=== PATIENT | female | born 1980 | race Caucasian/White ===

== ENCOUNTER 2019-05-15 17:02 | Inpatient (IN) ==
[2019-05-15] MEDS ORDERED: ONDANSETRON 4 MG/2 ML VIAL ONE (17:50)
[2019-05-15] MEDS ORDERED: HYDROmorphone 2 MG/1 ML VIAL IV STA ×2 (17:55→18:26)
[2019-05-15] MEDS ORDERED: ONDANSETRON 4 MG/2 ML VIAL IV STA ×2 (17:55→19:00)
[2019-05-15] MEDS ORDERED: SODIUM CHLORIDE 0.9% 1,000 ML IV STA (17:55)
[2019-05-15 18:10] LABS: Basophils # 0.1 10*3/uL (0.0-0.2); Basophils % 0.7 % (0.0-0.8); Eosinophils # 0.1 10*3/uL (0.0-0.87); Eosinophils % 1.1 % (0.00-10.9); Hematocrit 45.6 VOL% (35.7-47.0); Immature Granulocytes % 0.3 %; Immature Granulocytes Absolute 0.04 #; Mean Corpuscular HGB Conc 32.9 GM/DL (32-36); Mean Corpuscular Volume 88.2 FL (87-102); Mean Platelet Volume 10.4 FL (9.6-12.0); Monocytes % 7.2 % (1.7-12.7); Neutrophils % 67.7 % (38.7-73.9); Platelet Count 334 T/CUMM (130-400); Red Blood Count 5.17 MC/CUMM (3.8-5.5); White Blood Count 13.2 T/CUMM (4-12)
[2019-05-15 18:28] LABS: Albumin 4.1 G/DL (3.4-5.0); Bilirubin,Total 0.8 MG/DL (0.2-1.0); Calcium 9.5 MG/DL (8.5-10.1); Osmolality,Calculated 274.5 MOS/KG (273-304); Total Protein 7.8 G/DL (6.4-8.3)
[2019-05-15 18:48] LABS: Amorphous Crystals,Urine Occasional /HPF (Few); Apearance,Urine Slightly Hazy (Clear); Bilirubin,Urine Negative (Negative); Blood, Urine Negative (Negative); Glucose,Urine (UA) Negative (Negative); Ketones,Urine Negative (Negative); Mucus,Urine Occasional /LPF (Occasional); Nitrite,Urine Negative (Negative); Protein,Urine Negative; Squamous Epithelial Cell,Urine Occasional /HPF (0-10); Urine Color Yellow (Yellow); Urine Specific Gravity 1.011 (1.001-1.035); Urine Urobilinogen < 2.0 EU/DL (0.2-1.0)
[2019-05-15] MEDS ORDERED: NICOTINE 21 MG/24 HR PATCH TRANSDERM PRN (19:50)
[2019-05-15] MEDS ORDERED: diphenhydrAMINE CAP 25 MG CAPSULE PO PRN (19:50)
[2019-05-15] MEDS ORDERED: hydrALAZINE 20 MG/1 ML VIAL IV PRN (19:50)
[2019-05-15] MEDS ORDERED: DOCUSATE SODIUM 100 MG CAPSULE PO PRN (19:50)
[2019-05-15] MEDS ORDERED: guaiFENesin/DM ER 600-30 MG TABLET PO PRN (19:50)
[2019-05-15] MEDS ORDERED: ACETAMINOPHEN 325 MG TABLET PO PRN (19:50)
[2019-05-15] MEDS ORDERED: ZALEPLON 5 MG CAPSULE PO PRN (19:50)
[2019-05-15] MEDS ORDERED: ENOXAPARIN 40 MG/0.4 ML SYRINGE SUBCUT SCH (20:00)
[2019-05-15 20:13] LABS: Risk Ratio 3.53; VLDL CHOLESTEROL 18.8 MG/DL
[2019-05-15] MEDS: PROMETHAZINE 25 MG/1 ML VIAL IM PRN (21:30)
[2019-05-15] MEDS: cefTRIAXone 1,000 MG in SYRINGE 1 EACH IV SCH (21:34)
[2019-05-15] MEDS: metroNIDAZOLE INJ 500 MG in PREMIX 1 EACH IV SCH (21:35)
[2019-05-15] MEDS: SODIUM CHLORIDE 0.9% 1,000 ML IV SCH (22:28)
[2019-05-16] MEDS: HYDROmorphone 2 MG/1 ML VIAL IV PRN ×2 (03:26→19:32)
[2019-05-16] MEDS: ONDANSETRON 4 MG/2 ML VIAL IV PRN ×2 (03:27→19:34)
[2019-05-16 05:38] LABS: Basophils # 0.1 10*3/uL (0.0-0.2); Basophils % 0.5 % (0.0-0.8); Eosinophils % 0.1 % (0.00-10.9); Hemoglobin 12.4 GM/DL (12.0-16.0); Immature Granulocytes % 0.3 %; Immature Granulocytes Absolute 0.03 #; Lymphocytes # 1.5 10*3/uL (1.4-4.0); Lymphocytes % 14.9 % (21.3-54.2); Mean Corpuscular HGB Conc 33.5 GM/DL (32-36); Mean Corpuscular Volume 88.5 FL (87-102); Mean Platelet Volume 10.7 FL (9.6-12.0); Monocytes % 4.4 % (1.7-12.7); Neutrophils % 79.8 % (38.7-73.9); Platelet Count 264 T/CUMM (130-400); Red Blood Count 4.18 MC/CUMM (3.8-5.5); Red Cell Distribution Width 12.1 % (9.3-17.3); White Blood Count 9.8 T/CUMM (4-12)
[2019-05-16] MEDS: metroNIDAZOLE INJ 500 MG in PREMIX 1 EACH IV SCH ×3 (05:52→21:23)
[2019-05-16 05:57] LABS: Albumin 3.2 G/DL (3.4-5.0); Bilirubin,Total 0.9 MG/DL (0.2-1.0); Calcium 8.2 MG/DL (8.5-10.1); Osmolality,Calculated 279.3 MOS/KG (273-304); Total Protein 6.2 G/DL (6.4-8.3)
[2019-05-16] MEDS: SODIUM CHLORIDE 0.9% 1,000 ML IV SCH ×2 (06:56→16:45)
[2019-05-16] MEDS: MORPHINE 4 MG/1 ML VIAL IV PRN ×2 (09:18→16:42)
[2019-05-16] MEDS: PANTOPRAZOLE 40 MG TABLET PO SCH (09:19)
[2019-05-16] MEDS: cefTRIAXone 1,000 MG in SYRINGE 1 EACH IV SCH (21:22)
[2019-05-17] MEDS: HYDROmorphone 2 MG/1 ML VIAL IV PRN ×3 (01:14→17:17)
[2019-05-17] MEDS: ONDANSETRON 4 MG/2 ML VIAL IV PRN ×2 (01:14→06:02)
[2019-05-17] MEDS: SODIUM CHLORIDE 0.9% 1,000 ML IV SCH ×5 (02:57→19:21)
[2019-05-17] MEDS: metroNIDAZOLE INJ 500 MG in PREMIX 1 EACH IV SCH (05:12)
[2019-05-17 05:29] LABS: Basophils # 0.1 10*3/uL (0.0-0.2); Basophils % 0.6 % (0.0-0.8); Eosinophils # 0.2 10*3/uL (0.0-0.87); Hematocrit 34.6 VOL% (35.7-47.0); Hemoglobin 11.6 GM/DL (12.0-16.0); Immature Granulocytes % 0.4 %; Immature Granulocytes Absolute 0.04 #; Lymphocytes # 2.3 10*3/uL (1.4-4.0); Lymphocytes % 23.6 % (21.3-54.2); Mean Corpuscular HGB Conc 33.5 GM/DL (32-36); Mean Corpuscular Volume 88.5 FL (87-102); Mean Platelet Volume 10.8 FL (9.6-12.0); Monocytes % 6.4 % (1.7-12.7); Platelet Count 202 T/CUMM (130-400); Red Blood Count 3.91 MC/CUMM (3.8-5.5); Red Cell Distribution Width 12.2 % (9.3-17.3); White Blood Count 9.9 T/CUMM (4-12)
[2019-05-17 05:46] LABS: Calcium 7.8 MG/DL (8.5-10.1); Osmolality,Calculated 275.4 MOS/KG (273-304)
[2019-05-17] MEDS: PROMETHAZINE 25 MG/1 ML VIAL IM PRN (07:19)
[2019-05-17] MEDS: MORPHINE 4 MG/1 ML VIAL IV PRN (07:25)
[2019-05-17 09:14] LABS: Alanine Aminotransferase 54 U/L (13-56); Alkaline Phosphatase 39 U/L (45-117); Aspartate Amino Transferase 31 U/L (0-37); Bilirubin,Direct < 0.100 MG/DL (0.0-0.20); Bilirubin,Indirect 0.3 MG/DL (0.0-1.0); Bilirubin,Total < 0.39 MG/DL (0.2-1.0); Total Protein 5.7 G/DL (6.4-8.3)
[2019-05-17] MEDS: PANTOPRAZOLE 40 MG TABLET PO SCH (09:36)
[2019-05-17] MEDS: PIPERACILLIN/TAZOBACTAM 3,375 MG in SODIUM CHLORIDE 0.9% 100 ML IV SCH ×2 (14:20→21:24)
[2019-05-17] MEDS: KETOROLAC 15 MG/1 ML VIAL IV SCH ×2 (14:21→19:21)
[2019-05-18] MEDS: KETOROLAC 15 MG/1 ML VIAL IV SCH ×4 (00:35→18:27)
[2019-05-18] MEDS: SODIUM CHLORIDE 0.9% 1,000 ML IV SCH ×4 (03:03→16:28)
[2019-05-18] MEDS: PIPERACILLIN/TAZOBACTAM 3,375 MG in SODIUM CHLORIDE 0.9% 100 ML IV SCH ×3 (04:30→20:34)
[2019-05-18 07:30] LABS: Basophils # 0.1 10*3/uL (0.0-0.2); Basophils % 1.2 % (0.0-0.8); Eosinophils # 0.3 10*3/uL (0.0-0.87); Eosinophils % 4.9 % (0.00-10.9); Hematocrit 38.6 VOL% (35.7-47.0); Hemoglobin 12.6 GM/DL (12.0-16.0); Immature Granulocytes % 0.3 %; Immature Granulocytes Absolute 0.02 #; Lymphocytes # 2.3 10*3/uL (1.4-4.0); Lymphocytes % 35.7 % (21.3-54.2); Mean Corpuscular HGB Conc 32.6 GM/DL (32-36); Mean Corpuscular Volume 88.7 FL (87-102); Mean Platelet Volume 10.1 FL (9.6-12.0); Neutrophils % 49.9 % (38.7-73.9); Platelet Count 237 T/CUMM (130-400); Red Blood Count 4.35 MC/CUMM (3.8-5.5); White Blood Count 6.5 T/CUMM (4-12)
[2019-05-18 07:50] LABS: Calcium 8.5 MG/DL (8.5-10.1); Osmolality,Calculated 272.5 MOS/KG (273-304)
[2019-05-18 09:32] LABS: Albumin 3.2 G/DL (3.4-5.0); Bilirubin,Total 0.8 MG/DL (0.2-1.0); Calcium 8.6 MG/DL (8.5-10.1); Osmolality,Calculated 272.5 MOS/KG (273-304); Total Protein 6.2 G/DL (6.4-8.3)
[2019-05-18] MEDS: PANTOPRAZOLE 40 MG TABLET PO SCH (09:47)
[2019-05-18] MEDS ORDERED: DIAZEPAM 5 MG TABLET PO ONE (11:00)
[2019-05-18] MEDS: ONDANSETRON 4 MG/2 ML VIAL IV PRN (14:04)
[2019-05-18] MEDS: HYDROmorphone 2 MG/1 ML VIAL IV PRN (21:46)
[2019-05-19] MEDS: KETOROLAC 15 MG/1 ML VIAL IV SCH ×4 (00:55→18:24)
[2019-05-19] MEDS: SODIUM CHLORIDE 0.9% 1,000 ML IV SCH ×6 (00:58→21:19)
[2019-05-19] MEDS: PIPERACILLIN/TAZOBACTAM 3,375 MG in SODIUM CHLORIDE 0.9% 100 ML IV SCH ×3 (05:41→21:19)
[2019-05-19 06:25] LABS: Albumin 2.9 G/DL (3.4-5.0); Bilirubin,Total 1.4 MG/DL (0.2-1.0); Calcium 8.3 MG/DL (8.5-10.1); Osmolality,Calculated 276.3 MOS/KG (273-304); Total Protein 5.7 G/DL (6.4-8.3)
[2019-05-19] MEDS: PANTOPRAZOLE 40 MG TABLET PO SCH (10:08)
[2019-05-19] MEDS ORDERED: ceFAZolin 1,000 MG in SYRINGE 1 EACH IV ONE (14:13)
[2019-05-20] MEDS: KETOROLAC 15 MG/1 ML VIAL IV SCH ×4 (01:20→19:15)
[2019-05-20] MEDS: PIPERACILLIN/TAZOBACTAM 3,375 MG in SODIUM CHLORIDE 0.9% 100 ML IV SCH ×3 (04:34→21:03)
[2019-05-20 05:07] LABS: Basophils # 0.1 10*3/uL (0.0-0.2); Basophils % 1.2 % (0.0-0.8); Eosinophils # 0.4 10*3/uL (0.0-0.87); Eosinophils % 6.1 % (0.00-10.9); Hematocrit 37.1 VOL% (35.7-47.0); Hemoglobin 12.2 GM/DL (12.0-16.0); Immature Granulocytes % 0.3 %; Immature Granulocytes Absolute 0.02 #; Lymphocytes # 2.5 10*3/uL (1.4-4.0); Mean Corpuscular HGB Conc 32.9 GM/DL (32-36); Mean Corpuscular Volume 88.8 FL (87-102); Mean Platelet Volume 10.6 FL (9.6-12.0); Monocytes % 7.2 % (1.7-12.7); Neutrophils % 43.2 % (38.7-73.9); Platelet Count 251 T/CUMM (130-400); Red Blood Count 4.18 MC/CUMM (3.8-5.5)
[2019-05-20 05:45] LABS: Albumin 3.2 G/DL (3.4-5.0); Calcium 8.6 MG/DL (8.5-10.1); Osmolality,Calculated 277.3 MOS/KG (273-304); Total Protein 6.1 G/DL (6.4-8.3)
[2019-05-20] MEDS ORDERED: TISSUE ADHESIVE 1 EACH APPLICATOR TOP ONE (06:32)
[2019-05-20] MEDS ORDERED: ceFAZolin 1,000 MG VIAL ONE (07:05)
[2019-05-20] MEDS ORDERED: GLUCAGON 1 MG VIAL ONE (08:03)
[2019-05-20] MEDS ORDERED: diphenhydrAMINE 50 MG/1 ML VIAL IV PRN (09:01)
[2019-05-20] MEDS ORDERED: PROMETHAZINE INJ 25 MG in SODIUM CHLORIDE 0.9% 50 ML IV PRN (09:01)
[2019-05-20] MEDS ORDERED: ONDANSETRON 4 MG/2 ML VIAL IV PRN (09:01)
[2019-05-20] MEDS ORDERED: LIDOCAINE 2% 5 ML VIAL ONE (09:06)
[2019-05-20] MEDS ORDERED: propofoL 200 MG/20 ML VIAL IV ONE (09:06)
[2019-05-20] MEDS ORDERED: SEVOFLURANE 1 UNIT/15 MINUTE INH ONE (09:06)
[2019-05-20] MEDS ORDERED: MIDAZOLAM 2 MG/2 ML VIAL ONE (09:07)
[2019-05-20] MEDS ORDERED: ONDANSETRON 4 MG/2 ML VIAL ONE ×2 (09:07→09:08)
[2019-05-20] MEDS ORDERED: SUFentanil 50 MCG/ML AMP ONE (09:07)
[2019-05-20] MEDS ORDERED: MEPERIDINE 25 MG/1 ML VIAL ONE ×2 (09:07→09:18)
[2019-05-20] MEDS ORDERED: PHENYLEPHRINE 1 MG/10 ML SYRINGE IV ONE (09:08)
[2019-05-20] MEDS ORDERED: DEXAMETHASONE 4 MG/1 ML VIAL ONE (09:08)
[2019-05-20] MEDS ORDERED: ROCURONIUM 100 MG/10 ML VIAL IV ONE (09:08)
[2019-05-20] MEDS ORDERED: KETOROLAC 30 MG/1 ML VIAL ONE (09:08)
[2019-05-20] MEDS ORDERED: ACETAMINOPHEN 1,000 MG/100 ML VIAL IV ONE (09:08)
[2019-05-20] MEDS ORDERED: GLYCOPYRROLATE 0.4 MG/2 ML VIAL ONE (09:08)
[2019-05-20] MEDS ORDERED: NEOSTIGMINE 10 MG/10 ML VIAL ONE (09:09)
[2019-05-20] MEDS ORDERED: LACTATED RINGERS 1,000 ML IV ONE (09:09)
[2019-05-20] MEDS: MEPERIDINE 25 MG/1 ML VIAL IV PRN ×2 (09:10→09:20)
[2019-05-20] MEDS: SODIUM CHLORIDE 0.9% 1,000 ML IV SCH ×4 (09:12→21:06)
[2019-05-20] MEDS ORDERED: PROMETHAZINE 25 MG/1 ML VIAL ONE (09:18)
[2019-05-20] MEDS: HYDROmorphone 2 MG/1 ML VIAL IV PRN ×3 (10:38→21:03)
[2019-05-20] MEDS: PANTOPRAZOLE 40 MG TABLET PO SCH (10:41)
[2019-05-20] MEDS ORDERED: INDOMETHACIN SUPP 50 MG SUPP RECTAL ONE (11:32)
[2019-05-21] MEDS: KETOROLAC 15 MG/1 ML VIAL IV SCH ×4 (01:18→19:15)
[2019-05-21] MEDS: PIPERACILLIN/TAZOBACTAM 3,375 MG in SODIUM CHLORIDE 0.9% 100 ML IV SCH ×3 (05:12→20:41)
[2019-05-21] MEDS: HYDROmorphone 2 MG/1 ML VIAL IV PRN ×2 (05:17→20:41)
[2019-05-21] MEDS ORDERED: INDOMETHACIN SUPP 50 MG SUPP RECTAL ONE (07:57)
[2019-05-21] MEDS ORDERED: LIDOCAINE 2% 5 ML VIAL ONE (08:22)
[2019-05-21] MEDS ORDERED: MIDAZOLAM 2 MG/2 ML VIAL ONE ×2 (08:22→12:04)
[2019-05-21] MEDS ORDERED: SUCCINYLCHOLINE 200 MG/10 ML VIAL ONE (08:22)
[2019-05-21] MEDS ORDERED: ROCURONIUM 100 MG/10 ML VIAL IV ONE (08:22)
[2019-05-21] MEDS ORDERED: NEOSTIGMINE 10 MG/10 ML VIAL ONE (08:22)
[2019-05-21] MEDS ORDERED: DEXAMETHASONE 4 MG/1 ML VIAL ONE (08:22)
[2019-05-21] MEDS ORDERED: ONDANSETRON 4 MG/2 ML VIAL ONE (08:22)
[2019-05-21] MEDS ORDERED: propofoL 200 MG/20 ML VIAL IV ONE (08:22)
[2019-05-21] MEDS ORDERED: GLYCOPYRROLATE 0.4 MG/2 ML VIAL ONE (08:22)
[2019-05-21] MEDS ORDERED: ETOMIDATE 20 MG/10 ML VIAL IV ONE (08:22)
[2019-05-21] MEDS ORDERED: fentaNYL 100 MCG/2 ML VIAL ONE ×2 (08:22→12:04)
[2019-05-21] MEDS: SODIUM CHLORIDE 0.9% 1,000 ML IV SCH ×5 (08:34→20:42)
[2019-05-21] MEDS: PANTOPRAZOLE 40 MG TABLET PO SCH (11:07)
[2019-05-22 00:09] LABS: Apearance,Urine CLEAR (Clear); Bilirubin,Urine Negative (Negative); Blood, Urine Negative (Negative); Glucose,Urine (UA) Negative (Negative); Ketones,Urine Negative (Negative); Nitrite,Urine Negative (Negative); Protein,Urine Negative; RBC,Urine 1 /HPF (0-4); Squamous Epithelial Cell,Urine Occasional /HPF (0-10); Urine Color Yellow (Yellow); Urine Specific Gravity 1.026 (1.001-1.035); Urine Urobilinogen < 2.0 EU/DL (0.2-1.0); WBC,Urine 1 /HPF (0-6)
[2019-05-22] MEDS: KETOROLAC 15 MG/1 ML VIAL IV SCH ×2 (01:38→07:01)
[2019-05-22] MEDS: PIPERACILLIN/TAZOBACTAM 3,375 MG in SODIUM CHLORIDE 0.9% 100 ML IV SCH ×3 (05:17→22:17)
[2019-05-22] MEDS: HYDROmorphone 2 MG/1 ML VIAL IV PRN ×2 (05:18→22:21)
[2019-05-22 05:20] LABS: Basophils % 0.3 % (0.0-0.8); Eosinophils % 0.2 % (0.00-10.9); Hematocrit 30.3 VOL% (35.7-47.0); Hemoglobin 10.3 GM/DL (12.0-16.0); Immature Granulocytes % 0.3 %; Immature Granulocytes Absolute 0.03 #; Lymphocytes # 2.6 10*3/uL (1.4-4.0); Lymphocytes % 29.8 % (21.3-54.2); Mean Corpuscular Volume 87.1 FL (87-102); Mean Platelet Volume 11.1 FL (9.6-12.0); Monocytes % 5.8 % (1.7-12.7); Neutrophils % 63.6 % (38.7-73.9); Platelet Count 203 T/CUMM (130-400); Red Blood Count 3.48 MC/CUMM (3.8-5.5); Red Cell Distribution Width 12.5 % (9.3-17.3); White Blood Count 8.9 T/CUMM (4-12)
[2019-05-22 05:59] LABS: Bilirubin,Total 0.5 MG/DL (0.2-1.0); Osmolality,Calculated 280.3 MOS/KG (273-304); Total Protein 5.6 G/DL (6.4-8.3)
[2019-05-22] MEDS: BENZOCAINE/MENTHOL LOZENGE 18/BOX PO PRN ×3 (07:01→14:09)
[2019-05-22] MEDS: POTASSIUM CHLORIDE 20 MEQ TABLET PO PRN ×4 (07:01→13:05)
[2019-05-22] MEDS: PANTOPRAZOLE 40 MG TABLET PO SCH (09:29)
[2019-05-22] MEDS: PHENAZOPYRIDINE 95 MG TABLET PO SCH (22:20)
[2019-05-23] MEDS: PHENAZOPYRIDINE 95 MG TABLET PO SCH ×4 (00:43→17:32)
[2019-05-23 04:49] LABS: Basophils # 0.1 10*3/uL (0.0-0.2); Basophils % 1.1 % (0.0-0.8); Eosinophils # 0.2 10*3/uL (0.0-0.87); Eosinophils % 3.1 % (0.00-10.9); Hematocrit 31.4 VOL% (35.7-47.0); Hemoglobin 10.5 GM/DL (12.0-16.0); Immature Granulocytes % 0.1 %; Immature Granulocytes Absolute 0.01 #; Lymphocytes # 3.6 10*3/uL (1.4-4.0); Lymphocytes % 50.6 % (21.3-54.2); Mean Corpuscular HGB Conc 33.4 GM/DL (32-36); Mean Corpuscular Volume 88.2 FL (87-102); Mean Platelet Volume 10.4 FL (9.6-12.0); Monocytes % 6.4 % (1.7-12.7); Neutrophils % 38.7 % (38.7-73.9); Platelet Count 201 T/CUMM (130-400); Red Blood Count 3.56 MC/CUMM (3.8-5.5); Red Cell Distribution Width 12.7 % (9.3-17.3); White Blood Count 7.2 T/CUMM (4-12)
[2019-05-23 05:15] LABS: Bilirubin,Total 0.7 MG/DL (0.2-1.0); Calcium 8.3 MG/DL (8.5-10.1); Osmolality,Calculated 277.3 MOS/KG (273-304); Total Protein 5.5 G/DL (6.4-8.3)
[2019-05-23] MEDS: PIPERACILLIN/TAZOBACTAM 3,375 MG in SODIUM CHLORIDE 0.9% 100 ML IV SCH ×4 (07:27→21:08)
[2019-05-23] MEDS: SODIUM CHLORIDE 0.9% 1,000 ML IV SCH (08:29)
[2019-05-23] MEDS: PANTOPRAZOLE 40 MG TABLET PO SCH (09:14)
[2019-05-23] MEDS: BENZOCAINE/MENTHOL LOZENGE 18/BOX PO PRN (09:16)
[2019-05-23] MEDS: DOCUSATE SODIUM 100 MG CAPSULE PO SCH ×2 (13:48→21:05)
[2019-05-24 05:02] LABS: Basophils # 0.1 10*3/uL (0.0-0.2); Basophils % 1.3 % (0.0-0.8); Eosinophils # 0.4 10*3/uL (0.0-0.87); Eosinophils % 4.7 % (0.00-10.9); Hematocrit 36.8 VOL% (35.7-47.0); Hemoglobin 12.3 GM/DL (12.0-16.0); Immature Granulocytes % 0.4 %; Immature Granulocytes Absolute 0.03 #; Lymphocytes # 3.3 10*3/uL (1.4-4.0); Lymphocytes % 38.8 % (21.3-54.2); Mean Corpuscular HGB Conc 33.4 GM/DL (32-36); Mean Corpuscular Volume 88.2 FL (87-102); Mean Platelet Volume 10.8 FL (9.6-12.0); Monocytes % 7.1 % (1.7-12.7); Neutrophils % 47.7 % (38.7-73.9); Platelet Count 268 T/CUMM (130-400); Red Blood Count 4.17 MC/CUMM (3.8-5.5); Red Cell Distribution Width 12.5 % (9.3-17.3); White Blood Count 8.5 T/CUMM (4-12)
[2019-05-24 05:23] LABS: Albumin 3.2 G/DL (3.4-5.0); Bilirubin,Total 0.7 MG/DL (0.2-1.0); Calcium 8.7 MG/DL (8.5-10.1); Osmolality,Calculated 276.4 MOS/KG (273-304); Total Protein 6.2 G/DL (6.4-8.3)
[2019-05-24] MEDS: PIPERACILLIN/TAZOBACTAM 3,375 MG in SODIUM CHLORIDE 0.9% 100 ML IV SCH ×3 (05:37→21:40)
[2019-05-24] MEDS: PHENAZOPYRIDINE 95 MG TABLET PO SCH ×3 (08:16→20:34)
[2019-05-24] MEDS ORDERED: HYDROmorphone 2 MG/1 ML VIAL ONE (17:18)
[2019-05-24] MEDS ORDERED: ONDANSETRON 4 MG/2 ML VIAL ONE ×2 (17:18→17:34)
[2019-05-24] MEDS ORDERED: LIDOCAINE 2% 5 ML VIAL ONE (17:33)
[2019-05-24] MEDS ORDERED: fentaNYL 100 MCG/2 ML VIAL ONE (17:33)
[2019-05-24] MEDS ORDERED: DESFLURANE 1 UNIT/15 MINUTE INH ONE (17:33)
[2019-05-24] MEDS ORDERED: propofoL 200 MG/20 ML VIAL IV ONE (17:33)
[2019-05-24] MEDS ORDERED: MIDAZOLAM 2 MG/2 ML VIAL ONE (17:34)
[2019-05-24] MEDS ORDERED: SUCCINYLCHOLINE 200 MG/10 ML VIAL ONE (17:34)
[2019-05-24] MEDS: DOCUSATE SODIUM 100 MG CAPSULE PO SCH ×2 (17:37→21:50)
[2019-05-24] MEDS ORDERED: MEPERIDINE 25 MG/1 ML VIAL ONE (17:38)
[2019-05-24] MEDS ORDERED: MEPERIDINE 25 MG/1 ML VIAL IV ONE (17:54)
[2019-05-24] MEDS: HYDROmorphone 2 MG/1 ML VIAL IV PRN ×2 (18:38→23:11)
[2019-05-24] MEDS: PANTOPRAZOLE 40 MG TABLET PO SCH (19:21)
[2019-05-24] MEDS ORDERED: LORazepam 2 MG/1 ML VIAL IV ONE (19:33)
[2019-05-25] MEDS: HYDROmorphone 2 MG/1 ML VIAL IV PRN ×6 (01:30→19:41)
[2019-05-25 05:39] LABS: Basophils % 0.2 % (0.0-0.8); Hematocrit 42.8 VOL% (35.7-47.0); Immature Granulocytes % 0.6 %; Lymphocytes # 1.2 10*3/uL (1.4-4.0); Lymphocytes % 7.3 % (21.3-54.2); Mean Corpuscular HGB Conc 32.7 GM/DL (32-36); Mean Corpuscular Volume 88.8 FL (87-102); Mean Platelet Volume 10.6 FL (9.6-12.0); Monocytes % 5.3 % (1.7-12.7); Neutrophils % 86.6 % (38.7-73.9); Platelet Count 365 T/CUMM (130-400); Red Blood Count 4.82 MC/CUMM (3.8-5.5); Red Cell Distribution Width 12.3 % (9.3-17.3); White Blood Count 16.8 T/CUMM (4-12)
[2019-05-25] MEDS: PIPERACILLIN/TAZOBACTAM 3,375 MG in SODIUM CHLORIDE 0.9% 100 ML IV SCH ×3 (05:48→22:27)
[2019-05-25 05:51] LABS: Albumin 4.1 G/DL (3.4-5.0); Bilirubin,Total 1.3 MG/DL (0.2-1.0); Calcium 9.5 MG/DL (8.5-10.1); Total Protein 7.6 G/DL (6.4-8.3)
[2019-05-25] MEDS: ONDANSETRON 4 MG/2 ML VIAL IV PRN ×2 (09:16→18:18)
[2019-05-25] MEDS ORDERED: PROMETHAZINE 25 MG/1 ML VIAL IM PRN (10:17)
[2019-05-25] MEDS ORDERED: HYDROmorphone 2 MG/1 ML VIAL IV PRN (10:44)
[2019-05-25] MEDS: DIAZEPAM 10 MG/2 ML SYRINGE IV PRN ×2 (11:09→22:14)
[2019-05-25] MEDS: DOCUSATE SODIUM 100 MG CAPSULE PO SCH ×2 (12:20→22:11)
[2019-05-25] MEDS: PANTOPRAZOLE 40 MG TABLET PO SCH (12:20)
[2019-05-25] MEDS: PHENAZOPYRIDINE 95 MG TABLET PO SCH ×3 (12:20→18:11)
[2019-05-25] MEDS: METHOCARBAMOL INJ 500 MG in SODIUM CHLORIDE 0.9% 100 ML IV SCH (14:23)
[2019-05-25] MEDS: GABAPENTIN 300 MG CAPSULE PO SCH (22:11)
[2019-05-26] MEDS: METHOCARBAMOL INJ 500 MG in SODIUM CHLORIDE 0.9% 100 ML IV SCH ×3 (02:23→16:55)
[2019-05-26] MEDS: HYDROmorphone 2 MG/1 ML VIAL IV PRN (04:03)
[2019-05-26 04:50] LABS: Basophils # 0.1 10*3/uL (0.0-0.2); Basophils % 0.3 % (0.0-0.8); Eosinophils # 0.1 10*3/uL (0.0-0.87); Eosinophils % 0.5 % (0.00-10.9); Hematocrit 41.4 VOL% (35.7-47.0); Hemoglobin 13.7 GM/DL (12.0-16.0); Immature Granulocytes % 0.5 %; Immature Granulocytes Absolute 0.11 #; Lymphocytes # 1.7 10*3/uL (1.4-4.0); Lymphocytes % 8.5 % (21.3-54.2); Mean Corpuscular HGB Conc 33.1 GM/DL (32-36); Mean Platelet Volume 10.5 FL (9.6-12.0); Monocytes % 5.1 % (1.7-12.7); Neutrophils % 85.1 % (38.7-73.9); Platelet Count 341 T/CUMM (130-400); Red Cell Distribution Width 12.7 % (9.3-17.3); White Blood Count 20.1 T/CUMM (4-12)
[2019-05-26 05:10] LABS: Albumin 3.6 G/DL (3.4-5.0); Bilirubin,Total 3.1 MG/DL (0.2-1.0); Osmolality,Calculated 265.5 MOS/KG (273-304); Total Protein 7.2 G/DL (6.4-8.3)
[2019-05-26 05:17] LABS: Band Neutrophils 1 % (0-10); Lymphocytes 11 % (20-55); Segmented Neutrophils 84 % (50-85); Total Cells Counted 100
[2019-05-26 05:18] LABS: Hypochromasia 1+
[2019-05-26] MEDS: PIPERACILLIN/TAZOBACTAM 3,375 MG in SODIUM CHLORIDE 0.9% 100 ML IV SCH ×3 (06:02→20:46)
[2019-05-26] MEDS ORDERED: NALOXONE 0.4 MG/ML VIAL IV PRN (08:37)
[2019-05-26] MEDS ORDERED: DIAZEPAM 10 MG/2 ML SYRINGE IV PRN (08:39)
[2019-05-26] MEDS ORDERED: HYDROmorphone PCA 30 MG/30 ML SYRINGE IV SCH (09:00)
[2019-05-26] MEDS: GABAPENTIN 300 MG CAPSULE PO SCH ×3 (10:09→20:46)
[2019-05-26] MEDS: PANTOPRAZOLE 40 MG TABLET PO SCH (10:09)
[2019-05-26] MEDS: DOCUSATE SODIUM 100 MG CAPSULE PO SCH ×2 (10:09→20:46)
[2019-05-26] MEDS: PHENAZOPYRIDINE 95 MG TABLET PO SCH ×3 (10:09→16:42)
[2019-05-26] MEDS: ONDANSETRON 4 MG/2 ML VIAL IV PRN ×3 (15:14→22:37)
[2019-05-26] MEDS: POTASSIUM CHLORIDE 20 MEQ TABLET PO PRN ×2 (20:46→22:37)
[2019-05-27] MEDS: POTASSIUM CHLORIDE 20 MEQ TABLET PO PRN ×2 (00:43→02:29)
[2019-05-27] MEDS: METHOCARBAMOL INJ 500 MG in SODIUM CHLORIDE 0.9% 100 ML IV SCH ×3 (00:43→17:40)
[2019-05-27] MEDS: PIPERACILLIN/TAZOBACTAM 3,375 MG in SODIUM CHLORIDE 0.9% 100 ML IV SCH ×3 (04:41→20:44)
[2019-05-27 05:43] LABS: Basophils # 0.1 10*3/uL (0.0-0.2); Basophils % 0.5 % (0.0-0.8); Eosinophils # 0.5 10*3/uL (0.0-0.87); Hematocrit 38.2 VOL% (35.7-47.0); Hemoglobin 12.5 GM/DL (12.0-16.0); Immature Granulocytes % 0.5 %; Immature Granulocytes Absolute 0.09 #; Lymphocytes # 2.4 10*3/uL (1.4-4.0); Lymphocytes % 14.1 % (21.3-54.2); Mean Corpuscular HGB Conc 32.7 GM/DL (32-36); Mean Corpuscular Volume 90.7 FL (87-102); Mean Platelet Volume 10.5 FL (9.6-12.0); Monocytes % 7.6 % (1.7-12.7); Neutrophils % 74.3 % (38.7-73.9); Platelet Count 321 T/CUMM (130-400); Red Blood Count 4.21 MC/CUMM (3.8-5.5); Red Cell Distribution Width 12.9 % (9.3-17.3); White Blood Count 16.8 T/CUMM (4-12)
[2019-05-27 06:17] LABS: Albumin 3.2 G/DL (3.4-5.0); Bilirubin,Direct 1.46 MG/DL (0.0-0.20); Bilirubin,Total 3.1 MG/DL (0.2-1.0); Calcium 9.5 MG/DL (8.5-10.1); Osmolality,Calculated 262.4 MOS/KG (273-304)
[2019-05-27] MEDS: ONDANSETRON 4 MG/2 ML VIAL IV PRN (08:55)
[2019-05-27] MEDS ORDERED: HYDROmorphone 2 MG/1 ML VIAL IV PRN (09:36)
[2019-05-27] MEDS: PHENAZOPYRIDINE 95 MG TABLET PO SCH ×3 (10:18→18:30)
[2019-05-27] MEDS: PANTOPRAZOLE 40 MG TABLET PO SCH (10:18)
[2019-05-27] MEDS: DOCUSATE SODIUM 100 MG CAPSULE PO SCH ×2 (10:18→20:43)
[2019-05-27] MEDS: GABAPENTIN 300 MG CAPSULE PO SCH ×3 (10:18→20:43)
[2019-05-28] MEDS: METHOCARBAMOL INJ 500 MG in SODIUM CHLORIDE 0.9% 100 ML IV SCH ×2 (00:59→07:16)
[2019-05-28] MEDS: PIPERACILLIN/TAZOBACTAM 3,375 MG in SODIUM CHLORIDE 0.9% 100 ML IV SCH (05:03)
[2019-05-28 06:15] LABS: Albumin 2.9 G/DL (3.4-5.0); Bilirubin,Direct 0.62 MG/DL (0.0-0.20); Calcium 8.7 MG/DL (8.5-10.1); Total Protein 6.5 G/DL (6.4-8.3)
[2019-05-28] MEDS: PHENAZOPYRIDINE 95 MG TABLET PO SCH (09:40)
[2019-05-28] MEDS: DOCUSATE SODIUM 100 MG CAPSULE PO SCH (09:41)
[2019-05-28] MEDS: GABAPENTIN 300 MG CAPSULE PO SCH (09:41)
[2019-05-28] MEDS: PANTOPRAZOLE 40 MG TABLET PO SCH (09:41)
[2019-05-28 11:43] VITALS: BP 109/70
== END 2019-05-28 11:40 | disposition home or self-care (01) | DRG 419 ==
LOC: N.ED 17:02 → N.EDINP 19:50 → SUATTDRO 19:50 → N.3E 20:10
PROVIDERS: ADMIT Internal Medicine; ATTEND Internal Medicine
PROC: LAPCHOL (2019-05-20 07:00)
PROC: ERCPWSP (ICD-10-PCS; 2019-05-24 08:05)